=== PATIENT | male | born 1975 | race Caucasian/White ===

== ENCOUNTER 2016-06-07 21:50 | Inpatient (IN) | payer BC ==
[~2016-06-07] VITALS: Ht 165.1 cm; Wt 92.9 kg
[~2016-06-07 21:50] MED LIST: HYDR-762 PO; IBUP800T25 PO; NIAC500T81 PO; PRAV40TA76 PO
[2016-06-07] MEDS ORDERED: FAMOTIDINE 20 MG INJ IV STA (22:00)
[2016-06-07] MEDS ORDERED: ONDANSETRON 4 MG INJ IV STA (22:00)
[2016-06-07] MEDS ORDERED: SOD CHLORIDE 0.9% 1,000 ML IV STA ×2 (22:00→23:23)
[2016-06-07] MEDS ORDERED: KETOROLAC 30 MG INJ IV STA (22:00)
[2016-06-07] MEDS ORDERED: morphine 4 MG/ML VIAL IV STA ×2 (22:39→23:23)
--- NOTE | 2016-06-07 22:49 | RADRPT ---
PROCEDURE: US Abdomen. CLINICAL INDICATION: Abdominal pain. Pancreatitis. TECHNIQUE: Limited right upper quadrant Multiple real-time images were acquired utilizing a high r esolution transducer. COMPARISON: None FINDINGS: The liver demonstrates normal echogenicity. The liver is normal in size and no focal solid lesions are seen. The portal vein is patent with normal direction of flow. No intrahepatic biliary dilatat ion is seen. The liver measures 17.32 cm in length. No gallstones are identified within the gallbladder. There is no pericholecystic fluid or gallbladd er wall thickening. The common bile duct measures 3 mm mm in maximal dimension. The visualized pancreas is grossly unremarkable with some indistinct margins. The body and tail wer e obscured by bowel gas. No free fluid is identified. The right kidney is normal in size, and demonstrates normal echogenicity and cortical thickness. T he right kidney measures 11.7 cm. . There is no evidence of hydronephrosis or nephrolithiasis. IMPRESSION: Limited visualization of the pancreas. No gross peripancreatic fluid or mass. Otherwise unremarkab le right upper quadrant abdominal ultrasound. RPTAT:AAJJ Physician Laura Date Time Electronically viewed and signed by Physician Laura on 06/07/2016 22:48 REBECCA/
[2016-06-07 23:08] LABS: BASOPHILS % 0.2 % (0.0-2.0); EOSINOPHILS # 0.1 10^3/ul (0.0-0.5); EOSINOPHILS % 0.8 % (0.0-7.0); LYMPHOCYTES # 1.1 10^3/ul (0.8-2.9); LYMPHOCYTES % 13.4 % (15.0-51.0); MEAN PLATELET VOLUME 8.4 fl (7.4-10.4); MONOCYTE # 0.6 10^3/ul (0.3-0.9); MONOCYTES % 7.4 % (0.0-11.0); NEUTROPHIL # 6.2 10^3/ul (1.6-7.5); NEUTROPHILS % 78.2 % (39.0-77.0); PLATELET COUNT 260 10^3/UL (140-440); RED CELL DISTRIBUTION WIDTH 13.3 % (11.5-14.5); UNCORRECTED WBC 7.9 10^3/ul (4.8-10.8); WHITE BLOOD COUNT 7.9 10^3/ul (4.8-10.8)
[2016-06-07 23:12] LABS: ADD UMIC YES; URINE BILIRUBIN (Dip) NEGATIVE (NEGATIVE); URINE BLOOD (Dip) TRACE (NEGATIVE); URINE COLOR LT. YELLOW (YELLOW); URINE GLUCOSE (Dip) NEGATIVE (NEGATIVE); URINE KETONES (Dip) NEGATIVE (NEGATIVE); URINE LEUKOCYTE ESTERASE (Dip) NEGATIVE (NEGATIVE); URINE NITRITE (Dip) NEGATIVE (NEGATIVE); URINE TOTAL PROTEIN (Dip) 1+ (NEGATIVE); URINE UROBILINOGEN (Dip) 0.2 E.U./dL (0.1-1.0)
[2016-06-07 23:35] LABS: CONDITION 1; HEMATOCRIT 42.6 % (42.0-52.0); HEMOGLOBIN 15.2 g/dl (14.0-18.0); LH ANALYZER COMMENTS 1
[2016-06-07 23:36] LABS: ALBUMIN 5.1 g/dl (3.3-4.9); MEAN CORPUSCULAR HEMOGLOBIN 30.5 pg (29.0-33.0); MEAN CORPUSCULAR HGB CONC 35.8 g/dl (32.0-37.0); MEAN CORPUSCULAR VOLUME 85.2 fl (82.0-101.0)
[2016-06-07 23:37] LABS: POTASSIUM 4.8 mmol/L (3.5-5.1)
[2016-06-07 23:39] LABS: ALBUMIN/GLOBULIN RATIO 1.04; BILIRUBIN,INDIRECT 0.6 mg/dl (0-1.1); BILIRUBIN,TOTAL 0.6 mg/dl (0.2-1.3); CREATININE 1.02 mg/dl (0.61-1.24)
[2016-06-07 23:40] LABS: CALCIUM 9.8 mg/dl (8.4-10.2)
[2016-06-08 00:04] LABS: SQUAMOUS EPITHELIAL CELL,UR RARE; URINE RBCS 0-2 /HPF (0)
[2016-06-08 00:05] LABS: MUCUS,URINE FEW
[2016-06-08] MEDS ORDERED: SOD CHLORIDE 0.9% 1,000 ML IV SCH (00:15)
--- NOTE | 2016-06-08 00:18 | ERA ---
ER Documentation Chief Complaint Date/Time DATE: 06/08/16 TIME: 00:16 Chief Complaint epigastric pain HPI This is a 40-year-old male presents to the emergency room for evaluation of abdominal pain. Patient states that his abdominal pain for the past 24 hours. He localizes abdominal pain to the epigastric region and does state he has a history of pancreatitis. He states his pain feels similar to previous pancreatitis. The patient denies any alcohol consumption, or gallstones. The patient came to the ER for evaluation. Patient has no relieving factors for his pain and aggravating factors are movement of his abdomen. ROS All systems reviewed and are negative except as per history of present illness. Medications Home Meds Active Scripts Hydrocodone Bit-Acetaminophen* ([place]*) 10-325 Mg Tablet, 1 TAB PO Q6 Y for PAIN , #7 TAB Prov:SYLVIE JOSUE 11/03/14 Ibuprofen* (Motrin*) 800 Mg Tab, 800 MG PO Q6, #30 TAB Prov:SYLVIE JOSUE 11/03/14 Reported Medications Niacin* (Niacin*) 500 Mg Tablet, 500 MG PO DAILY, TAB 11/03/14 Pravastatin Sodium* (Pravastatin Sodium*) 40 Mg Tablet, 40 MG PO HS, TAB 11/03/14 Allergies Allergies: Coded Allergies: No Known Allergy (Unverified , 11/03/14) PMhx/Soc History of Surgery: Yes (rt elbow sx) Anesthesia Reaction: No Hx Neurological Disorder: No Hx Respiratory Disorders: No Hx Cardiac Disorders: No Hx Psychiatric Problems: No Hx Miscellaneous Medical Probl: Yes (high triglycerides, pancreatitis) Hx Alcohol Use: No Hx Substance Use: No Hx Tobacco Use: No Smoking Status: Never smoker Physical Exam Vitals Vital Signs Date Time Temp Pulse Resp B/P Pulse Ox O2 Delivery O2 Flow Rate FiO2 06/07/16 22:20 97.7 87 22 130/71 95 Physical Exam INITIAL VITAL SIGNS: Reviewed by me GENERAL: The patient is well developed and appropriate for usual state of health in no apparent distress HEENT: Pupils equal, round, and reactive to light. EOMI. There is no scleral icterus. NECK: C-spine is soft and supple, there is no meningismus. There is no cervical lymphadenopathy. LUNGS: Clear to auscultation bilaterally. There are no rales, wheezes or rhonchi. HEART: Regular rate and rhythm, no murmurs, clicks, rubs or gallops. ABDOMEN: Epigastric tenderness to palpation,. There are bowel sounds in all four quadrants. No rebound or guarding. EXTREMITIES: There is no peripheral cyanosis or edema. No focal swelling or erythema. NEUROLOGICAL: The patient moves all four extremities with 5/5 strength. Cranial nerves II - XII are intact. Normal gait. Alert and oriented SKIN: There is no apparent rash or petechiae. HEME/LYMPHATIC: There is no evidence of excessive bruising or lymphedema. PSYCHIATRIC: The patient does not appear anxious or depressed. Result Diagram: 06/07/16220406/07/162204 Results 24 hrs Laboratory Tests Test 06/07/16 22:05 Alanine Aminotransferase (ALT/SGPT) 49IU/L Albumin 5.1g/dl Albumin/Globulin Ratio 1.04 Alkaline Phosphatase 70IU/L Anion Gap 22 Aspartate Amino Transf (AST/SGOT) 76IU/L Basophils # 0.010^3/ul Basophils % 0.2% Blood Morphology Comment Blood Urea Nitrogen 12mg/dl Calcium Level 9.8mg/dl Carbon Dioxide Level 26mmol/L Chloride Level 100mmol/L Creatinine 1.02mg/dl Direct Bilirubin 0.00mg/dl Eosinophils # 0.110^3/ul Eosinophils % 0.8% Globulin 4.90g/dl Glucose Level 97mg/dl Hematocrit 42.6% Hemoglobin 15.2g/dl Indirect Bilirubin 0.6mg/dl Lipase U/L Lymphocytes # 1.110^3/ul Lymphocytes % 13.4% Mean Corpuscular Hemoglobin 30.5pg Mean Corpuscular Hemoglobin Concent 35.8g/dl Mean Corpuscular Volume 85.2fl Mean Platelet Volume 8.4fl Monocytes # 0.610^3/ul Monocytes % 7.4% Neutrophils # 6.210^3/ul Neutrophils % 78.2% Nucleated Red Blood Cells # 0.010^3/ul Nucleated Red Blood Cells % 0.0/100WBC Platelet Count 16840^3/UL Potassium Level 4.8mmol/L Red Blood Count 5.0010^6/ul Red Cell Distribution Width 13.3% Sodium Level 143mmol/L Total Bilirubin 0.6mg/dl Total Protein 10.0g/dl Urine Bilirubin NEGATIVE Urine Clarity CLEAR Urine Color LT. YELLOW Urine Glucose NEGATIVE% Urine Hemoglobin TRACE Urine Ketones NEGATIVE Urine Leukocyte Esterase NEGATIVE Urine Microscopic RBC 0-2/HPF Urine Microscopic WBC 0-2/HPF Urine Mucus FEW Urine Nitrite NEGATIVE Urine Specific [place] 1.025 Urine Squamous Epithelial Cells RARE Urine Total Protein 1+ Urine Urobilinogen 0.2 E.U./dL Urine pH 6.0 White Blood Count 7.910^3/ul Current Medications Medications (Trade) Dose Ordered Sig/Juany Route PRN Reason Start Time Stop Time Status Last Admin Dose Admin Sodium Chloride (NS) 1,000 ml @ 1,000 mls/hr Q1H STAT IV 06/07/16 22:00 06/07/16 22:59 DC 06/07/16 22:21 Ondansetron HCl (Zofran Inj) 4 mg ONCE STAT IV 06/07/16 22:00 06/07/16 22:02 DC 06/07/16 22:20 Famotidine (Pepcid Iv) 20 mg ONCE STAT IV 06/07/16 22:00 06/07/16 22:02 DC 06/07/16 22:21 Ketorolac Tromethamine (Toradol) 30 mg ONCE STAT IV 06/07/16 22:00 06/07/16 22:02 DC 06/07/16 22:20 Morphine Sulfate 4 mg 4 mg ONCE STAT IV 06/07/16 22:39 06/07/16 22:40 DC 06/07/16 22:50 Sodium Chloride (NS) 1,000 ml @ 1,000 mls/hr Q1H STAT IV 06/07/16 23:23 06/08/16 00:22 06/07/16 23:32 Morphine Sulfate (morphine) 4 mg ONCE STAT IV 06/07/16 23:23 06/07/16 23:24 DC 06/07/16 23:33 Procedures/MDM Ultrasound gallbladder: Limited visualization of the pancreas. No gross peripancreatic fluid or mass. Otherwise unremarkable right upper quadrant abdominal ultrasound. This 40-year-old male presents to the ER for evaluation of abdominal pain. This patient does have a previous history of pancreatitis. Lab work was obtained including a lipase. I was called by the laboratory and told that the patient's lipase is greater than 4000. An ultrasound was obtained to rule out gallstones as the cause of his pancreatitis. The patient has no gallstones, no common bile duct dilation. The patient does not use alcohol, and I looked up his previous medical records and it seems like this patient does have a history of hypertriglyceridemia. I feel that this is the cause of his pancreatitis. The patient's pain is controlled with morphine in the emergency room and he will be placed on the medical floor under the care of Dr. Lee Departure Diagnosis: Primary Impression: Acute pancreatitis Additional Impression: Hypertriglyceridemia Condition: Stable BENNY KIRKLAND DO Jun 08, 2016 00:18
[2016-06-08] MEDS ORDERED: ACETAMINOPHEN 325 MG TAB PO PRN (00:30)
[2016-06-08] MEDS ORDERED: ONDANSETRON 4 MG INJ IV PRN ×2 (00:30→02:30)
[2016-06-08 01:43] VITALS: BP 116/67; RESP 16
[2016-06-08 02:00] VITALS: Ht 165.1 cm; Wt 92.9 kg
[2016-06-08] MEDS: D5W-0.45 NACL + KCL 20 MEQ 1,000 ML IV SCH ×3 (03:15→18:52)
[2016-06-08] MEDS: morphine 4 MG/ML VIAL IV PRN ×2 (03:30→17:58)
[2016-06-08] MEDS: morphine 10 MG INJ IV PRN ×2 (07:25→21:45)
[2016-06-08 07:33] LABS: CHOL/HDL RATIO 13.3 RATIO; CHOLESTEROL 266 mg/dl (100-200); HDL CHOLESTEROL 20 mg/dl (28-63)
[2016-06-08 08:36] VITALS: BP 105/59; RESP 18
[2016-06-08 09:33] LABS: ALBUMIN 3.8 g/dl (3.3-4.9); CHLORIDE 104 mmol/L (97-110)
[2016-06-08 09:34] LABS: POTASSIUM 5.4 mmol/L (3.5-5.1); SODIUM 139 mmol/L (135-144)
[2016-06-08 09:35] LABS: AMYLASE 405 U/L (11-123)
[2016-06-08 09:36] LABS: ALANINE AMINOTRANSFERASE 57 IU/L (13-69); ALBUMIN/GLOBULIN RATIO 1.05; ALKALINE PHOSPHATASE 48 IU/L (42-121); ANION GAP 16 (8-16); ASPARTATE AMINO TRANSFERASE 36 IU/L (15-46); BILIRUBIN,INDIRECT 0.6 mg/dl (0-1.1); BILIRUBIN,TOTAL 0.6 mg/dl (0.2-1.3); BLOOD UREA NITROGEN 10 mg/dl (7-20); CARBON DIOXIDE 24 mmol/L (21-31); CREATININE 1.04 mg/dl (0.61-1.24); GLUCOSE 110 mg/dl (70-220); TOTAL PROTEIN 7.4 g/dl (6.1-8.1)
[2016-06-08 09:37] LABS: CALCIUM 8.3 mg/dl (8.4-10.2); MAGNESIUM 1.9 mg/dl (1.7-2.5)
[2016-06-08 09:41] LABS: TRIGLYCERIDES > 1575 mg/dl (0-149)
[2016-06-08 09:43] LABS: BASOPHILS % 0.1 % (0.0-2.0); EOSINOPHILS % 0.5 % (0.0-7.0); HEMATOCRIT 42.5 % (42.0-52.0); LYMPHOCYTES # 0.7 10^3/ul (0.8-2.9); MEAN CORPUSCULAR HEMOGLOBIN 30.6 pg (29.0-33.0); MEAN CORPUSCULAR HGB CONC 35.6 g/dl (32.0-37.0); MEAN CORPUSCULAR VOLUME 85.8 fl (82.0-101.0); MEAN PLATELET VOLUME 9.2 fl (7.4-10.4); MONOCYTE # 0.4 10^3/ul (0.3-0.9); MONOCYTES % 4.7 % (0.0-11.0); NEUTROPHIL # 8.3 10^3/ul (1.6-7.5); NEUTROPHILS % 87.7 % (39.0-77.0); RED BLOOD COUNT 4.96 10^6/ul (4.70-6.10); RED CELL DISTRIBUTION WIDTH 13.5 % (11.5-14.5); UNCORRECTED WBC 9.4 10^3/ul (4.8-10.8)
[2016-06-08 09:49] LABS: CONDITION 1
[2016-06-08 09:50] LABS: HEMOGLOBIN 15.1 g/dl (14.0-18.0); PLATELET COUNT 220 10^3/UL (140-440); WHITE BLOOD COUNT 9.7 10^3/ul (4.8-10.8)
--- NOTE | 2016-06-08 11:43 | HP ---
Date/Time of Note Date/Time of Note DATE: 06/08/16 TIME: 11:33 Assessment/Plan VTE Prophylaxis VTE Prophylaxis Intervention: SCD's Lines/Catheters IV Catheter Type (from Nrsg): Peripheral IV Assessment/Plan Problems: (1) Acute pancreatitis Status: Acute Comment: Hypertriglyceridemic pancreatitis. Will place on bowel rest w/ IVF and treat pain w/ morphine sulfate. Pt. denies nausea but ondansetron is available prn. Monitor LFT, amylase/lipase Calcium, CO2, renal function. Qualifiers: Pancreatitis type: other Acute pancreatitis complication: no infection or necrosis Qualified Code: K85.80 - Other acute pancreatitis without infection or necrosis (2) Hypertriglyceridemia Status: Chronic Comment: Triglycerides above upper limit of detection. Pt. reports adherence w / gemfibrozil. Once on po meds would add Lovaza or Vascepa 2 g bid and pt. advised to take an extra 3 g EPA/DHA in meuxj-6-uxnof acid/d. Pt. also advised to adhere w/ low-carb diet. HPI/ROS Admit Date/Time Admit Date/Time Jun 08, 2016 at 00:16 Hx of Present Illness 40 y/o H M w/ personal and family h/o hypertriglyceridemia and personal h/o pancreatitis in H until 2 days ago when he developed mild upper abd. pain and some GI discomfort. Denies N/V. Was able to go to work. When he got home he took a nap. Upon wakening yesterday evening abd. pain was severe. Again no N/ V but did have some belching. Drove self to ER. On way there had drenching cold sweats and had to pin puller. On arrival to ER VS were NL but found on labs to have lipse > 3000. Pt. reports total adherence w/ anti-lipid meds and exercises frequently. However, admits to poor diet. ROS Constitutional: improved, no complaints Eyes: no complaints ENT: no complaints Respiratory: no complaints Cardiovascular: no complaints Gastrointestinal: decreased appetite, pain (periumbilical radiating to R flank) , No nausea, No vomiting Genitourinary: no complaints Musculoskeletal: no complaints Neurologic: no complaints Psychological: anxiety PMH/Family/Social Past Medical History Medical History: high cholesterol, pancreatitis Past Surgical History Past Surgical Hx: appendectomy, other (dislocated R elbow x 2) Family History Significant Family History: heart disease, other (hyperlipidemia) Social History Works at [employer]. Runs half-marathons Alcohol Use: sober Smoking Status: Never smoker Drug Use: none Exam/Review of Systems Vital Signs Vitals Vital Signs Date Time Temp Pulse Resp B/P Pulse Ox O2 Delivery O2 Flow Rate FiO2 06/08/16 08:36 98.9 65 18 105/59 95 06/08/16 01:30 Room Air Intake and Output 06/07/16 06/07/16 06/08/16 15:00 23:00 07:00 Intake Total 375 ml Balance 375 ml Exam Constitutional: alert, oriented, other (obese) Psych: nl mood/affect, no complaints Eyes: EOMI, PERRL, nl conjunctiva, nl lids, nl sclera ENMT: mucosa pink and moist, nl external ears & nose Neck: non-tender, supple, No bruits, No masses, No thyromegaly Respiratory: clear to auscultation, normal air movement Cardiovascular: nl pulses, regular rate and rhythm, No edema, No murmurs/extra sounds, No rub Gastrointestinal: bowel sounds, nl liver, spleen, soft, tender (periumbilical and RLQ, (+) tender to percussion as well), No non-tender Musculoskeletal: nl extremities to inspection Extremities: normal pulses, No clubbing, No cyanosis, No edema Neurological: PARISH WORKER II-XII intact, nl mental status, nl speech, nl strength Labs Result Diagram: 06/08/16 0830 06/08/16 0830 Medications Medications Current Medications Ondansetron HCl 4 mg 4 mg Q4H PRN IV NAUSEA AND/OR VOMITING; Start 06/08/16 at 02:30 Potassium Chloride/Dextrose/ Sod Cl (D5-1/2ns + KCl 20 Meq) 1,000 ml @ 125 mls/ hr Q8H IV Last administered on 06/08/16 03:15; Admin Dose 125 MLS/HR; Start at 02:30 Morphine Sulfate (morphine) 4 mg Q4H PRN IV PAIN LEVEL 1-6 Last administered on 06/08/16 03:30; Admin Dose 4 MG; Start 06/08/16 at 02:30 Morphine Sulfate (morphine) 6 mg Q4H PRN IV PAIN LEVEL 7-10 Last administered on 06/08/16t 07:25; Admin Dose 6 MG; Start 06/08/16 at 02:30 MENG BROOKS MD Jun 08, 2016 11:43
[2016-06-08 20:45] VITALS: BP 115/57; PULSE 96; RESP 18
[2016-06-09] MEDS: D5W-0.45 NACL + KCL 20 MEQ 1,000 ML IV SCH ×5 (03:27→21:46)
[2016-06-09 06:37] LABS: ALBUMIN 3.4 g/dl (3.3-4.9)
[2016-06-09 06:40] LABS: ALBUMIN/GLOBULIN RATIO 1.03; BILIRUBIN,INDIRECT 0.6 mg/dl (0-1.1); BILIRUBIN,TOTAL 0.6 mg/dl (0.2-1.3); CALCIUM 7.9 mg/dl (8.4-10.2); CREATININE 1.02 mg/dl (0.61-1.24); TOTAL PROTEIN 6.7 g/dl (6.1-8.1)
[2016-06-09 07:31] VITALS: BP 125/65; RESP 18
[2016-06-09 08:34] LABS: EOSINOPHILS # 0.1 10^3/ul (0.0-0.5); EOSINOPHILS % 1.5 % (0.0-7.0); HEMATOCRIT 39.7 % (42.0-52.0); LYMPHOCYTES # 0.5 10^3/ul (0.8-2.9); MEAN CORPUSCULAR HEMOGLOBIN 30.3 pg (29.0-33.0); MEAN CORPUSCULAR HGB CONC 34.6 g/dl (32.0-37.0); MEAN CORPUSCULAR VOLUME 87.5 fl (82.0-101.0); MEAN PLATELET VOLUME 9.2 fl (7.4-10.4); MONOCYTE # 0.1 10^3/ul (0.3-0.9); MONOCYTES % 1.1 % (0.0-11.0); NEUTROPHIL # 7.9 10^3/ul (1.6-7.5); NEUTROPHILS % 91.4 % (39.0-77.0); RED BLOOD COUNT 4.54 10^6/ul (4.70-6.10); RED CELL DISTRIBUTION WIDTH 13.8 % (11.5-14.5); UNCORRECTED WBC 8.6 10^3/ul (4.8-10.8)
[2016-06-09 08:36] LABS: CONDITION 1; LH ANALYZER COMMENTS 1
[2016-06-09 08:37] LABS: HEMOGLOBIN 13.8 g/dl (14.0-18.0); PLATELET COUNT 190 10^3/UL (140-440); WHITE BLOOD COUNT 9.2 10^3/ul (4.8-10.8)
[2016-06-09] MEDS: ACETAMINOPHEN 325 MG TAB PO PRN ×2 (09:48→17:53)
--- NOTE | 2016-06-09 10:23 | PN ---
Date/Time of Note Date/Time of Note DATE: 06/09/16 TIME: 10:19 Assessment/Plan VTE Prophylaxis VTE Prophylaxis Intervention: SCD's Lines/Catheters IV Catheter Type (from Nrs): Peripheral IV Assessment/Plan Problems: (1) Acute pancreatitis Status: Acute Comment: Improving dramatically. Advance to sugar-free clears. If tolerating and desires more food, may advance to low-carb diet tonight. If tolerates that , likely d/c home tomorrow. Qualifiers: Pancreatitis type: other Acute pancreatitis complication: no infection or necrosis Qualified Code: K85.80 - Other acute pancreatitis without infection or necrosis (2) Hypertriglyceridemia Status: Chronic Comment: Resume gemfibrozil 600 mg bid and add fish oil 2 g bid. (3) Headache Status: Acute Comment: Tylenol 650 mg prn Subjective 24 Hr Interval Summary Constitutional: improved, no complaints Respiratory: no complaints Cardiovascular: no complaints Gastrointestinal: pain (reduction in level of pain to 3/10. ), No decreased appetite, No nausea, No vomiting Genitourinary: no complaints Musculoskeletal: no complaints Neurologic: headache, no complaints Exam/Review of Systems Vital Signs Vitals VS - Last 72 Hours, by Label Date Time Temp Pulse Resp B/P Pulse Ox O2 Delivery O2 Flow Rate FiO2 06/09/16 07:31 98.6 90 18 125/65 95 06/08/16 20:45 98.6 96 18 115/57 98 Room Air 06/08/16 08:36 98.9 65 18 105/59 95 06/08/16 01:43 98.4 66 16 116/67 96 06/08/16 01:30 81 13 103/58 96 Room Air 06/08/16 01:29 74 14 103/58 94 Room Air 06/07/16 22:20 97.7 87 22 130/71 95 Vital Signs Date Time Temp Pulse Resp B/P Pulse Ox O2 Delivery O2 Flow Rate FiO2 06/09/16 07:31 98.6 90 18 125/65 95 06/08/16 20:45 Room Air Intake and Output 06/08/16 06/08/16 06/09/16 14:59 22:59 06:59 Intake Total 1000 ml 1000 ml Balance 1000 ml 1000 ml Exam Constitutional: alert, obese, oriented Psych: nl mood/affect, no complaints Respiratory: clear to auscultation, normal air movement Cardiovascular: nl pulses, regular rate and rhythm, No edema, No murmurs/extra sounds, No rub Gastrointestinal: bowel sounds, nl liver, spleen, soft, tender (periumbilical and RUQ but decreased in intensity vs. yesterday. No longer TTpercussion), No mass, No rebound or guarding Musculoskeletal: nl extremities to inspection Extremities: normal pulses, No clubbing, No cyanosis, No edema Neurological: BAG WORKER II-XII intact, nl mental status, nl speech, nl strength Results Result Diagram: 06/09/1644906/09/16449 Results 24 hrs Laboratory Tests Test 06/09/16 04:50 Alanine Aminotransferase (ALT/SGPT) 43 Albumin 3.4 Albumin/Globulin Ratio 1.03 Alkaline Phosphatase 48 Amylase Level 135 #H Anion Gap 14 Aspartate Amino Transf (AST/SGOT) 32 Basophils # 0.0 Basophils % 0.0 Blood Urea Nitrogen 9 Calcium Level 7.9 L Carbon Dioxide Level 27 Chloride Level 101 Creatinine 1.02 Direct Bilirubin 0.00 Eosinophils # 0.1 Eosinophils % 1.5 Globulin 3.30 H Glucose Level 93 Hematocrit 39.7 L Hemoglobin 13.8 L Indirect Bilirubin 0.6 Lipase 354 H Lymphocytes # 0.5 L Lymphocytes % 6.0 L Mean Corpuscular Hemoglobin 30.3 Mean Corpuscular Hemoglobin Concent 34.6 Mean Corpuscular Volume 87.5 Mean Platelet Volume 9.2 Monocytes # 0.1 L Monocytes % 1.1 Neutrophils # 7.9 H Neutrophils % 91.4 H Nucleated Red Blood Cells # 0.0 Nucleated Red Blood Cells % 0.0 Platelet Count 190 Potassium Level 4.0 Red Blood Count 4.54 L Red Cell Distribution Width 13.8 Sodium Level 138 Total Bilirubin 0.6 Total Protein 6.7 White Blood Count 9.2 Medications Medications Current Medications Ondansetron HCl 4 mg 4 mg Q4H PRN IV NAUSEA AND/OR VOMITING; Start 06/08/16 at 02:30 Potassium Chloride/Dextrose/ Sod Cl (D5-1/2ns + KCl 20 Meq) 1,000 ml @ 125 mls/ hr Q8H IV Last administered on 06/09/16t 03:27; Admin Dose 125 MLS/HR; Start at 02:30 Morphine Sulfate (morphine) 4 mg Q4H PRN IV PAIN LEVEL 1-6 Last administered on 06/08/16 17:58; Admin Dose 4 MG; Start 06/08/16 at 02:30 Morphine Sulfate (morphine) 6 mg Q4H PRN IV PAIN LEVEL 7-10 Last administered on 06/08/16 21:45; Admin Dose 6 MG; Start 06/08/16 at 02:30 Acetaminophen (Tylenol Tab) 650 mg Q4H PRN PO HEADACHE Last administered on 09:48; Admin Dose 650 MG; Start 06/09/16 at 09:33 MENG BROOKS MD Jun 09, 2016 10:23
[2016-06-09] MEDS: GEMFIBROZIL 600 MG TAB PO SCH (20:04)
[2016-06-09] MEDS: FISH OIL 1,000 MG CAP PO SCH (20:04)
[2016-06-09 20:15] VITALS: BP 136/78; RESP 20
[2016-06-10] MEDS: D5W-0.45 NACL + KCL 20 MEQ 1,000 ML IV SCH ×3 (02:30→10:30)
[2016-06-10 07:02] LABS: ALBUMIN 3.6 g/dl (3.3-4.9)
[2016-06-10 07:03] LABS: POTASSIUM 3.9 mmol/L (3.5-5.1)
[2016-06-10 07:05] LABS: ALBUMIN/GLOBULIN RATIO 0.94; BILIRUBIN,INDIRECT 0.5 mg/dl (0-1.1); BILIRUBIN,TOTAL 0.5 mg/dl (0.2-1.3); CREATININE 0.86 mg/dl (0.61-1.24); TOTAL PROTEIN 7.4 g/dl (6.1-8.1)
[2016-06-10 07:06] LABS: CALCIUM 8.4 mg/dl (8.4-10.2)
[2016-06-10 07:25] VITALS: BP 135/73; RESP 20
[2016-06-10 08:01] LABS: BASOPHIL # 0.1 10^3/ul (0.0-0.1); BASOPHILS % 0.9 % (0.0-2.0); EOSINOPHILS # 0.1 10^3/ul (0.0-0.5); HEMATOCRIT 40.9 % (42.0-52.0); LYMPHOCYTES # 0.8 10^3/ul (0.8-2.9); LYMPHOCYTES % 10.6 % (15.0-51.0); MEAN CORPUSCULAR HEMOGLOBIN 30.6 pg (29.0-33.0); MEAN CORPUSCULAR HGB CONC 35.1 g/dl (32.0-37.0); MEAN CORPUSCULAR VOLUME 87.1 fl (82.0-101.0); MEAN PLATELET VOLUME 9.4 fl (7.4-10.4); MONOCYTE # 0.5 10^3/ul (0.3-0.9); MONOCYTES % 7.3 % (0.0-11.0); NEUTROPHIL # 5.9 10^3/ul (1.6-7.5); NEUTROPHILS % 79.2 % (39.0-77.0); PLATELET COUNT 147 10^3/UL (140-440); RED CELL DISTRIBUTION WIDTH 13.6 % (11.5-14.5); UNCORRECTED WBC 7.4 10^3/ul (4.8-10.8)
[2016-06-10 08:03] LABS: CONDITION 1; HEMOGLOBIN 14.4 g/dl (14.0-18.0); WHITE BLOOD COUNT 7.3 10^3/ul (4.8-10.8)
[2016-06-10] MEDS: FISH OIL 1,000 MG CAP PO SCH (09:00)
[2016-06-10] MEDS: GEMFIBROZIL 600 MG TAB PO SCH (09:01)
--- NOTE | 2016-06-10 13:49 | PDOCDIS ---
Discharge Instructions DIAGNOSIS Discharge Diagnosis: Acute pancreatitis due to hypertriglyceridemia CONDITION Patient Condition: Fair HOME CARE INSTRUCTIONS: Diet Instructions: Low-carbSpecial Diet: Low-carb ACTIVITY: Activity Restrictions: No Restrictions Bathing Restrictions: Shower FOLLOW UP/APPOINTMENTS Appointments f/u w/ Dr. Palmer in 2 weeks MENG BROOKS MD Jun 10, 2016 13:49
[2016-06-10] MEDS ORDERED: OMEG1CAP2 PO (13:51)
[2016-06-10] MEDS ORDERED: GEMF600T60 PO (13:51)
--- NOTE | 2016-06-10 13:56 | DS ---
Date/Time of Note Date/Time of Note DATE: 06/10/16 TIME: 13:52 Discharge Summary Admission/Discharge Info Admit Date/Time Jun 08, 2016 at 00:16 Discharge Date/Time 06/10/2016 @ 1400 Final Diagnosis Acute pancreatitis due to hypertriglyceridemia. Patient Condition: Fair Consults none Procedures Gall bladder ultrasound: unremarkable Hx of Present Illness 40 y/o H M w/ personal and family h/o hypertriglyceridemia and personal h/o pancreatitis in H until 2 days ago when he developed mild upper abd. pain and some GI discomfort. Denies N/V. Was able to go to work. When he got home he took a nap. Upon wakening yesterday evening abd. pain was severe. Again no N/ V but did have some belching. Drove self to ER. On way there had drenching cold sweats and had to stock puller. On arrival to ER VS were NL but found on labs to have lipse > 3000. Pt. reports total adherence w/ anti-lipid meds and exercises frequently. However, admits to poor diet. Hospital Course Patient made NPO and placed on IV fluids and ordered for morphine IV and ondansetron. Did not need ondansetron. Pain improved and lipase normalized over next 2 days. Triglycerides found to be greater than the upper limit of detection for [facility]. Resumed clear liquid diet last night and started lovaza 2 g bid and resumed gemfibrozil. This am, advanced to carb-controlled diet. Pt. tolerated and is now pain-free. Ready for d/c home. Advise low-carb diet plus these two meds in the future. Home Meds Active Scripts [place]-3 Acid Ethyl Esters (Lovaza) 1 Gm Capsule, 2 GM PO BID for 30 Days, #60 CAP 5 Refills Prov:MENG BROOKS MD 06/10/16 Gemfibrozil* (Gemfibrozil*) 600 Mg Tablet, 600 MG PO BID for 30 Days, #60 TAB 5 Refills Prov:MENG BROOKS MD 06/10/16 Hydrocodone Bit-Acetaminophen* ([place]*) 10-325 Mg Tablet, 1 TAB PO Q6 Y for PAIN , #7 TAB Prov:SYLVIE JOSUE 11/03/14 Ibuprofen* (Motrin*) 800 Mg Tab, 800 MG PO Q6, #30 TAB Prov:BEAUSYLVIE WANG 11/03/14 Reported Medications Niacin* (Niacin*) 500 Mg Tablet, 500 MG PO DAILY, TAB 11/03/14 Pravastatin Sodium* (Pravastatin Sodium*) 40 Mg Tablet, 40 MG PO HS, TAB 11/03/14 Follow-up Plan f/u w/ Dr. Palmer in 2 weeks Pending Labs Laboratory Tests Test 06/10/16 05:35 Alanine Aminotransferase (ALT/SGPT) 42IU/L (13-69) Albumin 3.6g/dl (3.3-4.9) Albumin/Globulin Ratio 0.94 Alkaline Phosphatase 72IU/L (42-121) Amylase Level 75U/L (11-123) Anion Gap 16 (8-16) Aspartate Amino Transf (AST/SGOT) 32IU/L (15-46) Basophils # 0.110^3/ul (0.0-0.1) Basophils % 0.9% (0.0-2.0) Blood Urea Nitrogen 6mg/dl (7-20) Calcium Level 8.4mg/dl (8.4-10.2) Carbon Dioxide Level 25mmol/L (21-31) Chloride Level 104mmol/L (97-110) Creatinine 0.86mg/dl (0.61-1.24) Direct Bilirubin 0.00mg/dl (0.00-0.20) Eosinophils # 0.110^3/ul (0.0-0.5) Eosinophils % 2.0% (0.0-7.0) Globulin 3.80g/dl (1.3-3.2) Glucose Level 103mg/dl (70-220) Hematocrit 40.9% (42.0-52.0) Hemoglobin 14.4g/dl (14.0-18.0) Indirect Bilirubin 0.5mg/dl (0-1.1) Lipase 143U/L (23-300) Lymphocytes # 0.810^3/ul (0.8-2.9) Lymphocytes % 10.6% (15.0-51.0) Mean Corpuscular Hemoglobin 30.6pg (29.0-33.0) Mean Corpuscular Hemoglobin Concent 35.1g/dl (32.0-37.0) Mean Corpuscular Volume 87.1fl (82.0-101.0) Mean Platelet Volume 9.4fl (7.4-10.4) Monocytes # 0.510^3/ul (0.3-0.9) Monocytes % 7.3% (0.0-11.0) Neutrophils # 5.910^3/ul (1.6-7.5) Neutrophils % 79.2% (39.0-77.0) Nucleated Red Blood Cells # 0.010^3/ul (0.0-0.0) Nucleated Red Blood Cells % 0.0/100WBC (0.0-0.0) Platelet Count 71324^3/UL (140-440) Potassium Level 3.9mmol/L (3.5-5.1) Red Blood Count 4.7010^6/ul (4.70-6.10) Red Cell Distribution Width 13.6% (11.5-14.5) Sodium Level 141mmol/L (135-144) Total Bilirubin 0.5mg/dl (0.2-1.3) Total Protein 7.4g/dl (6.1-8.1) White Blood Count 7.310^3/ul (4.8-10.8) MENG BROOKS MD Jun 10, 2016 13:56
== END 2016-06-10 14:50 | disposition home or self-care (01) | DRG 440 ==
LOC: E/R 21:50 → MS2 06-08 00:16
PROVIDERS: ADMIT Internal Medicine; ATTEND Internal Medicine
DX: K85.90 Acute pancreatitis without necrosis or infection, unspecified (principal); E78.1 Pure hyperglyceridemia; R51 Headache
CPT/HCPCS: 36415; 76705; 80053; 80061; 81001; 81003; 82150; 83690; 83735; 84100; 85025; 96374; 96375; 96376; J1885; J2270; J2405; J3480; J7030

== ENCOUNTER 2017-04-06 21:16 | Inpatient (IN) | payer BC ==
[~2017-04-06] VITALS: Ht 165.1 cm; Wt 92.3 kg
[~2017-04-06 21:16] MED LIST changes: +GEMF600T60 PO; -HYDR-762 PO; -IBUP800T25 PO; +OMEG1CAP2 PO
[2017-04-06] MEDS ORDERED: morphine 4 MG/ML VIAL IV STA (21:27)
[2017-04-06] MEDS ORDERED: ONDANSETRON 4 MG INJ IV STA (21:27)
[2017-04-06] MEDS ORDERED: LACTATED RINGER'S 1,000 ML IV ONE (21:30)
[2017-04-06 22:01] LABS: BASOPHILS % 0.2 % (0.0-2.0); EOSINOPHILS # 0.1 10^3/ul (0.0-0.5); EOSINOPHILS % 1.3 % (0.0-7.0); HEMATOCRIT 41.3 % (42.0-52.0); HEMOGLOBIN 16.2 g/dl (14.0-18.0); LYMPHOCYTES % 11.4 % (15.0-51.0); MEAN CORPUSCULAR HEMOGLOBIN 32.5 pg (29.0-33.0); MEAN CORPUSCULAR VOLUME 82.8 fl (82.0-101.0); MEAN PLATELET VOLUME 10.2 fl (7.4-10.4); MONOCYTE # 0.6 10^3/ul (0.3-0.9); MONOCYTES % 6.7 % (0.0-11.0); NEUTROPHIL # 6.9 10^3/ul (1.6-7.5); NEUTROPHILS % 80.1 % (39.0-77.0); PLATELET COUNT 252 10^3/UL (140-415); POSITIVE DIFF @See below; RED BLOOD COUNT 4.99 10^6/ul (4.70-6.10); RED CELL DISTRIBUTION WIDTH 12.2 % (11.5-14.5); WHITE BLOOD COUNT 8.7 10^3/ul (4.8-10.8)
[2017-04-06 22:06] LABS: MEAN CORPUSCULAR HGB CONC 39.2 g/dl (32.0-37.0)
[2017-04-06 22:27] LABS: ALBUMIN/GLOBULIN RATIO 0.93; BILIRUBIN,INDIRECT 0.7 mg/dl (0-1.1); BILIRUBIN,TOTAL 0.7 mg/dl (0.2-1.3); CALCIUM 8.8 mg/dl (8.4-10.2); CREATININE 0.91 mg/dl (0.61-1.24); POTASSIUM 4.4 mmol/L (3.5-5.1); TOTAL PROTEIN 8.3 g/dl (6.1-8.1)
[2017-04-06] MEDS ORDERED: morphine 10 MG INJ IV ONE (23:30)
[2017-04-07] MEDS ORDERED: LIDOCAINE/MYLANTA 40 ML BTL PO ONE
[2017-04-07] MEDS ORDERED: LIDOCAINE/MYLANTA 40 ML BTL ONE (00:29)
[2017-04-07] MEDS ORDERED: morphine 10 MG INJ IV ONE (01:00)
--- NOTE | 2017-04-07 01:01 | ERD ---
ER Documentation Chief Complaint Chief Complaint epigastric pain / x 2 days (history of pancreatitis) HPI 41-year-old male presents with severe epigastric pain in his left upper abdomen as well as his epigastrium and sometimes in his right abdomen. It has been admitted before him and told that he had pancreatitis although it was not related to alcohol and he has no gallbladder disease. Pain is severe. Worse in his emergency room. Mentions to me earlier in the day when I was working with him now returns because the pain is severe. He has some nausea with pain without vomiting. Tried taking Zantac earlier with no relief. ROS All systems reviewed and are negative except as per history of present illness. Medications Home Meds Active Scripts [place]-3 Acid Ethyl Esters (Lovaza) 1 Gm Capsule, 2 GM PO BID for 30 Days, #60 CAP 5 Refills Prov:MENG BROOKS MD 06/10/16 Gemfibrozil* (Gemfibrozil*) 600 Mg Tablet, 600 MG PO BID for 30 Days, #60 TAB 5 Refills Prov:MENG BROOKS MD 06/10/16 Reported Medications Niacin* (Niacin*) 500 Mg Tablet, 500 MG PO DAILY, TAB 11/03/14 Pravastatin Sodium* (Pravastatin Sodium*) 40 Mg Tablet, 40 MG PO HS, TAB 11/03/14 Allergies Allergies: Coded Allergies: No Known Allergy (Unverified , 11/03/14) PMhx/Soc History of Surgery: Yes (APPENDECTOMY, ) Anesthesia Reaction: No Hx Neurological Disorder: No Hx Respiratory Disorders: No Hx Cardiac Disorders: No (HIGH CHOLESTEROL) Hx Psychiatric Problems: No Hx Miscellaneous Medical Probl: Yes (pancreatitis) Hx Alcohol Use: No Hx Substance Use: No Hx Tobacco Use: No Smoking Status: Never smoker Physical Exam Vitals Vital Signs Date Time Temp Pulse Resp B/P Pulse Ox O2 Delivery O2 Flow Rate FiO2 04/06/17 23:20 86 14 146/83 97 Nasal Cannula 2.0 04/06/17 21:20 98 18 152/98 95 Physical Exam Const: [] Moderate distress, appears very uncomfortable Head: Atraumatic Eyes: Normal Conjunctiva ENT: Normal External Ears, Nose and Mouth. Neck: Full range of motion..~ No meningismus. Resp: Clear to auscultation bilaterally Cardio: Regular rate and rhythm, no murmurs Abd: Soft, mild upper abdominal tenderness without guarding or rebound non distended. Normal bowel sounds Skin: No petechiae or rashes Back: No midline or flank tenderness Ext: No cyanosis, or edema Neur: Awake and alert Psych: Normal Mood and Affect Result Diagram: 04/06/17214404/06/172144 Results 24 hrs Laboratory Tests Test 04/06/17 21:45 White Blood Count 8.710^3/ul Red Blood Count 4.9910^6/ul Hemoglobin 16.2g/dl Hematocrit 41.3% Mean Corpuscular Volume 82.8fl Mean Corpuscular Hemoglobin 32.5pg Mean Corpuscular Hemoglobin Concent 39.2g/dl Red Cell Distribution Width 12.2% Platelet Count 38905^3/UL Mean Platelet Volume 10.2fl Neutrophils % 80.1% Lymphocytes % 11.4% Monocytes % 6.7% Eosinophils % 1.3% Basophils % 0.2% Nucleated Red Blood Cells % 0.0/100WBC Neutrophils # 6.910^3/ul Lymphocytes # 1.010^3/ul Monocytes # 0.610^3/ul Eosinophils # 0.110^3/ul Basophils # 0.010^3/ul Nucleated Red Blood Cells # 0.010^3/ul Sodium Level 139mmol/L Potassium Level 4.4mmol/L Chloride Level 106mmol/L Carbon Dioxide Level 20mmol/L Anion Gap 17 Blood Urea Nitrogen 11mg/dl Creatinine 0.91mg/dl Glucose Level 99mg/dl Calcium Level 8.8mg/dl Total Bilirubin 0.7mg/dl Direct Bilirubin 0.00mg/dl Indirect Bilirubin 0.7mg/dl Aspartate Amino Transf (AST/SGOT) 65IU/L Alanine Aminotransferase (ALT/SGPT) 72IU/L Alkaline Phosphatase 79IU/L Total Protein 8.3g/dl Albumin 4.0g/dl Globulin 4.30g/dl Albumin/Globulin Ratio 0.93 Lipase 217U/L Current Medications Medications (Trade) Dose Ordered Sig/Juany Route PRN Reason Start Time Stop Time Status Last Admin Dose Admin Morphine Sulfate (morphine) 8 mg ONCE STAT IV 04/06/17 21:27 04/06/17 21:29 DC 04/06/17 21:50 Ondansetron HCl 4 mg 4 mg ONCE STAT IV 04/06/17 21:27 04/06/17 21:29 DC 04/06/17 21:49 Lactated Ringer's (Lr) 1,000 ml @ 1,000 mls/hr Q1H ONCE IV 04/06/17 21:30 04/06/17 22:29 DC 04/06/17 21:50 Morphine Sulfate (morphine) 8 mg ONCE ONCE IV 04/06/17 23:30 04/07/17 00:33 DC Miscellaneous Medication (Gi Cocktail (2)) 40 ml ONCE ONCE PO 04/07/17 00:00 04/07/17 00:01 UNV Miscellaneous Medication (Gi Cocktail (2)) 40 ml STK-MED ONCE .ROUTE 04/07/17 00:29 04/07/17 00:30 DC Morphine Sulfate (morphine) 8 mg ONCE ONCE IV 04/07/17 01:00 04/07/17 01:01 Procedures/MDM Intractable abdominal pain is concerning and 41-year-old male. Recurrence of the pain. Has no elevated lipase or concerning laboratories with the pain does continue. Given a total of 16 mg of morphine and still continues to have pain although it is decreased.. GI cocktail had no benefit. He has been admitted for this before by Dr. Tompkins. Because been placed to his office. Patient also received Zofran and liter of IV fluids. CT is pending will be followed by the oncoming physician. CT abdomen pelvis interpretation: Official read is pending. I see no acute process. I see no pancreatic inflammation or surrounding fat stranding, no free air perforation, no fractures. Departure Diagnosis: Primary Impression: Intractable abdominal pain Condition: Rober NELSONSHIVANIDOROTAYAAKOV HANCOCK Apr 07, 2017 01:01
--- NOTE | 2017-04-07 01:07 | RADRPT ---
PROCEDURE: CT Abdomen and pelvis without contrast. CLINICAL INDICATION: Abdominal pain. TECHNIQUE: CT scan of the abdomen and pelvis was performed on a multi-detector high-resolution CT scanner. Contiguous axial images were obtained from the lung bases to the ischial tuberosities wit hout intravenous contrast. Coronal and sagittal reformatted images were also obtained. Images were reviewed on the PACS workstation. DICOM images are available. One or more of the following dose reduction techniques were used: - Automated exposure control. - Adjustment of the mA and/or kV according to patient size. - Use of iterative reconstruction technique. Exam CTD/vol = 17.09 mGy. Total exam DLP = 1142.66 mGy-cm. COMPARISON: None. FINDINGS: Evaluation of the lung bases demonstrates mild bibasilar atelectasis. Abdomen: The liver is normal in size and diffusely low in attenuation consistent with fatty infiltr ation. There is no focal mass or dilatation of the biliary tree. The gallbladder is not distended. The spleen and bilateral adrenal glands are within normal limits. Bilateral kidneys are normal in size with no contour deforming mass identified. There is no radiopaque renal or ureteral calculus identified. There is no hydronephrosis or hydroureter. There is no retroperitoneal adenopathy. Th e abdominal aorta is of normal caliber. There is mild to moderate stranding and mild fluid within the mid to right upper abdomen surrounding the head and uncinate process of the pancreas and proximal duodenum. There is stranding and mild f luid extending to the right anterior pararenal space. There is no bowel obstruction or free air. Th e appendix is not visualized. There is no diverticulosis or diverticulitis. Pelvis: The bladder is unremarkable. There is a small left inguinal hernia containing fat. The pr ostate and seminal vesicles are within normal limits. There is no significant pelvic adenopathy or free fluid. Evaluation of the osseous structures demonstrates no suspicious lytic or blastic lesion. IMPRESSION: Mild to moderate stranding and mild fluid within the mid to right upper abdomen surrounding the head and uncinate process of the pancreas and proximal duodenum. Findings could represent pancreatitis a nd/or duodenitis. Fatty infiltration of the liver. Small left inguinal hernia containing fat. .Arvind Newell MD, MD Date Time Electronically viewed and signed by .Arvind Newell MD, MD on 04/07/2017 01:07 .T/
[2017-04-07] MEDS ORDERED: ONDANSETRON 4 MG INJ IV PRN (01:30)
[2017-04-07] MEDS ORDERED: ACETAMINOPHEN 325 MG TAB PO PRN (01:30)
[2017-04-07 02:08] VITALS: Ht 165.1 cm; Wt 92.3 kg
[2017-04-07] MEDS ORDERED: HYDROCODONE/APAP (5/325) TAB PO PRN (02:30)
[2017-04-07 02:42] VITALS: BP 128/78; RESP 20
[2017-04-07] MEDS: D5W-0.45 NACL + KCL 20 MEQ 1,000 ML IV SCH ×4 (04:02→23:25)
[2017-04-07] MEDS: HYDROmorphONE 2 MG/ML SYG IV PRN ×2 (04:08→12:45)
[2017-04-07] MEDS: ONDANSETRON 4 MG INJ IV PRN ×2 (04:40→13:45)
[2017-04-07] MEDS: PANTOPRAZOLE 40 MG INJ IV SCH ×2 (05:41→17:52)
[2017-04-07 07:08] LABS: ALANINE AMINOTRANSFERASE 56 IU/L (13-69); ALBUMIN/GLOBULIN RATIO 1.17; ALKALINE PHOSPHATASE 59 IU/L (42-121); ANION GAP 15 (8-16); ASPARTATE AMINO TRANSFERASE 40 IU/L (15-46); BILIRUBIN,INDIRECT 0.6 mg/dl (0-1.1); BILIRUBIN,TOTAL 0.6 mg/dl (0.2-1.3); BLOOD UREA NITROGEN 10 mg/dl (7-20); CALCIUM 8.3 mg/dl (8.4-10.2); CARBON DIOXIDE 24 mmol/L (21-31); CHLORIDE 103 mmol/L (97-110); CHOL/HDL RATIO 9.1 RATIO; CHOLESTEROL 273 mg/dl (100-200); CREATININE 0.86 mg/dl (0.61-1.24); GLUCOSE 138 mg/dl (70-220); HDL CHOLESTEROL 30 mg/dl (27-67); POTASSIUM 4.2 mmol/L (3.5-5.1); SODIUM 138 mmol/L (135-144); TOTAL PROTEIN 7.4 g/dl (6.1-8.1)
[2017-04-07 07:33] VITALS: BP 107/68; RESP 18
[2017-04-07 07:40] LABS: TRIGLYCERIDES 1352 mg/dl (0-149)
[2017-04-07] MEDS: FISH OIL 1,000 MG CAP PO SCH ×2 (08:40→21:31)
[2017-04-07] MEDS: FENOFIBRATE 145 MG TAB PO SCH (08:40)
[2017-04-07 08:42] LABS: ABNORMAL IP MESSAGE 1; BASOPHILS % 0.2 % (0.0-2.0); EOSINOPHILS % 0.2 % (0.0-7.0); HEMATOCRIT 39.4 % (42.0-52.0); LYMPHOCYTES # 0.5 10^3/ul (0.8-2.9); LYMPHOCYTES % 3.7 % (15.0-51.0); MEAN CORPUSCULAR HEMOGLOBIN 29.9 pg (29.0-33.0); MEAN CORPUSCULAR HGB CONC 35.3 g/dl (32.0-37.0); MEAN CORPUSCULAR VOLUME 84.7 fl (82.0-101.0); MONOCYTE # 0.8 10^3/ul (0.3-0.9); MONOCYTES % 6.3 % (0.0-11.0); NEUTROPHIL # 11.8 10^3/ul (1.6-7.5); NUCLEATED RED BLOOD CELLS% 0.3 /100WBC (0.0-0.0); POSITIVE DIFF @See below; RED BLOOD COUNT 4.65 10^6/ul (4.70-6.10); RED CELL DISTRIBUTION WIDTH 12.7 % (11.5-14.5); WHITE BLOOD COUNT 13.3 10^3/ul (4.8-10.8)
[2017-04-07 08:43] LABS: PLATELET COUNT 226 10^3/UL (140-415)
[2017-04-07 08:44] LABS: MEAN PLATELET VOLUME 10.2 fl (7.4-10.4)
[2017-04-07 08:45] LABS: HEMOGLOBIN 13.9 g/dl (14.0-18.0)
[2017-04-07] MEDS: HYDROCODONE/APAP (5/325) TAB PO PRN ×2 (08:48→20:12)
[2017-04-07 11:05] LABS: ADD UMIC YES; UR ASCORBIC ACID NEGATIVE (NEGATIVE); UR BILIRUBIN (Dip) NEGATIVE (NEGATIVE); UR BLOOD (Dip) 1+ mg/dL (NEGATIVE); UR CLARITY CLEAR (CLEAR); UR COLOR YELLOW (YELLOW); UR GLUCOSE (Dip) 1+ mg/dL (NEGATIVE); UR KETONES (Dip) 1+ mg/dL (NEGATIVE); UR LEUKOCYTE ESTERASE (Dip) NEGATIVE Leu/ul (NEGATIVE); UR NITRITE (Dip) NEGATIVE (NEGATIVE); UR RBC 4 /HPF (0-5); UR SPECIFIC GRAVITY (Dip) 1.026 (1.003-1.030); UR TOTAL PROTEIN (Dip) NEGATIVE (NEGATIVE); UR UROBILINOGEN (Dip) NEGATIVE (NEGATIVE)
--- NOTE | 2017-04-07 11:11 | HP ---
DATE OF ADMISSION: 04/07/2017 HISTORY OF PRESENT ILLNESS: This is one of several [facility] admissions for this 41-year-old gentleman admitted with chief complaint of abdominal pain. Mr. Guerra is a 41-year-old gentleman with severe hyperlipidemia, has had several episodes of pancre atitis secondary to hypertriglyceridemia, severe type IV hyperlipidemia, presented to the emergency room with a 2-day history of worsening epigastric pain; however, different, he states, than his usua l pain. The patient had somewhat over done it on Thanksgiving when he ate a lot and at this point, presented with the above complaint to the emergency room. Evaluation in the emergency room, cat fang did not reveal an elevated amylase, minimal elevation of lipase, however, and patient does describe this pain as being somewhat different than his usual pain and that it is more epigastric a nd radiates to the right side as opposed to the left side. Other than that, he has had no other com plaints and patient was admitted for management of abdominal pain to rule out or to determine the et iology of the back pain. PAST MEDICAL HISTORY: Positive for the followin. He has had at least 3-4 hospitalizations for pancreatitis. 2. Had appendectomy done. 3. Dislocated his right shoulder. 4. He has not broken any big bones. 5. He is not allergic to any medications. CURRENT MEDICATIONS: Include: 1. Gemfibrozil 600 mg b.i.d. 2. Pravastatin 40 mg daily. 3. Niacin 500 mg daily. 4. [place] 3 acid ethyl esters Lovaza 2 grams p.o. b.i.d. ALLERGIES: HE IS NOT ALLERGIC TO ANY MEDICATIONS. SOCIAL HISTORY: The patient is single, has no children. He does not smoke or drink alcohol, does d rink coffee. Has no trouble sleeping at night and is employed. FAMILY HISTORY: Both parents are alive in good health. Two brothers are in good health. There is a family history, however, of diabetes, heart, cancer, hypertension, and stroke. REVIEW OF SYSTEMS HEENT: Periodic headaches. CARDIORESPIRATORY: Denies any chest pain or shortness of breath. GASTROINTESTINAL: No melena or hematemesis; however, does have some gastroesophageal reflux symptom s as well as occasional symptoms of irritable bowel. GENITOURINARY: No urgency, frequency. MUSCULOSKELETAL: Unremarkable. NEUROPSYCHIATRIC: Unremarkable. GENERAL HEALTH: As above. PHYSICAL EXAMINATION: VITAL SIGNS: The patient's blood pressure was 146/82, pulse was 86 and regular, respirations were 1 8, temperature 98, O2 saturation 97%. GENERAL: The patient was noted to be a well-developed, well-nourished male, alert and cooperative a t the time of my exam. Slight abdominal distress in the emergency room but oriented to time, place and person. HEAD, EARS, EYES, NOSE AND THROAT: Head was atraumatic. Eyes: Pupils were equal, reactive to ligh t and accommodation. Fundi were benign. Tympanic membranes were unremarkable. Nose was negative. Mouth was unremarkable. Fair oral hygiene was present. NECK: Supple without any rigidity. Trachea was midline. Thyroid was within normal limits. Neck v eins were flat. Carotid pulses were equal. No bruits were heard. BACK: Unremarkable. CHEST: Symmetrical. BREASTS AND AXILLARY: Did not reveal any masses. LUNGS: Clear to percussion and auscultation. HEART: PMI is fifth intercostal space at the midclavicular line. Regular sinus rhythm was noted. No significant murmurs, rubs or gallops being elicited. ABDOMEN: Soft, bowel sounds were noted in the mid epigastric area. Abdomen tenderness was noted. No guarding or rebound. No distention, normal bowel sounds were noted. GENITALIA: Normal male external genitalia. RECTAL AND PROSTATIC: Exam done within the last 4 months did not reveal any significant abnormaliti es. EXTREMITIES: Normal male external genitalia. RECTAL AND PROSTATIC: Done within the last 4 months was unremarkable. EXTREMITIES: Did not reveal any clubbing, edema or cyanosis. Peripheral pulses were physiologic. SKIN: Moist and warm without any eruptions. No gross lymphadenopathy was noted. NEUROLOGIC: Grossly intact. IMPRESSION: 1. Abdominal pain, moderately severe and intractable; etiology to be determined. 2. History of hypertriglyceridemia and hyperlipidemia with multiple episodes of pancreatitis in the past. 3. Stable health otherwise. LABORATORY DATA: Review of laboratory and other data revealed the following: The patient's ceramic chemist ry panel was normal. CBC was normal. His parameters were all normal, maybe slight elevation of his lipase, but certainly nothing in the ranges that it has been in the past. PLAN: To admit the patient for pain control. Possibilities are that this is not related to the powell creas, but possibly due to peptic ulcer disease and/or gastritis. This worsening pain occurred afte r drinking coffee and having a very heavy diet. CONDITION ON ADMISSION: Stable. PROGNOSIS: Obviously dependent upon ultimate diagnosis. Dictated By: MANOLO PANCHAL/ISAIAH Conf#: [id number] DID#: [id number]
[2017-04-07 14:32] VITALS: BP 111/63; RESP 18
[2017-04-07 15:26] VITALS: BP 111/63; PULSE 74; RESP 18
[2017-04-07 19:24] LABS: INR 1.18; PROTIME 15.1 Sec (12.2-14.2); PT RATIO 1.2
[2017-04-07 19:42] LABS: PARTIAL THROMBOPLASTIN TIME 36.9 Sec (25.0-35.0)
[2017-04-07] MEDS ORDERED: PEG/ELECTROLYTES 4L BTL PO ONE (20:00)
[2017-04-07 20:14] VITALS: BP 115/67; RESP 18
[2017-04-07] MEDS: ATORVASTATIN 20 MG TAB PO SCH (21:31)
[2017-04-08] VITALS (12 sets, daily range): BP systolic 90–135; BP diastolic 55–79; PULSE 82–110; RESP 16–20
[2017-04-08 05:48] LABS: BASOPHILS % 0.2 % (0.0-2.0); EOSINOPHILS # 0.1 10^3/ul (0.0-0.5); HEMATOCRIT 36.7 % (42.0-52.0); LYMPHOCYTES # 1.3 10^3/ul (0.8-2.9); LYMPHOCYTES % 12.4 % (15.0-51.0); MEAN CORPUSCULAR HEMOGLOBIN 30.2 pg (29.0-33.0); MEAN CORPUSCULAR HGB CONC 35.4 g/dl (32.0-37.0); MEAN CORPUSCULAR VOLUME 85.2 fl (82.0-101.0); MEAN PLATELET VOLUME 10.1 fl (7.4-10.4); MONOCYTE # 0.7 10^3/ul (0.3-0.9); MONOCYTES % 6.9 % (0.0-11.0); NEUTROPHIL # 8.1 10^3/ul (1.6-7.5); NEUTROPHILS % 79.2 % (39.0-77.0); PLATELET COUNT 215 10^3/UL (140-415); RED BLOOD COUNT 4.31 10^6/ul (4.70-6.10); RED CELL DISTRIBUTION WIDTH 12.8 % (11.5-14.5); WHITE BLOOD COUNT 10.2 10^3/ul (4.8-10.8)
[2017-04-08] MEDS: PANTOPRAZOLE 40 MG INJ IV SCH ×2 (06:08→18:21)
[2017-04-08 06:24] LABS: ALBUMIN 3.4 g/dl (3.3-4.9); ALBUMIN/GLOBULIN RATIO 0.97; BILIRUBIN,INDIRECT 0.4 mg/dl (0-1.1); BILIRUBIN,TOTAL 0.4 mg/dl (0.2-1.3); CALCIUM 8.4 mg/dl (8.4-10.2); CREATININE 0.95 mg/dl (0.61-1.24); POTASSIUM 3.8 mmol/L (3.5-5.1); TOTAL PROTEIN 6.9 g/dl (6.1-8.1)
[2017-04-08] MEDS: D5W-0.45 NACL + KCL 20 MEQ 1,000 ML IV SCH ×3 (08:30→18:22)
--- NOTE | 2017-04-08 08:35 | PN ---
Date/Time of Note Date/Time of Note DATE: 04/08/17 TIME: 08:29 Assessment/Plan VTE Prophylaxis VTE Prophylaxis Intervention: SCD's Lines/Catheters IV Catheter Type (from Nrs): Peripheral IV Assessment/Plan Chief Complaint/Hosp Course intractable abdominal pain in a patient with multiple bouts of pancreatitis, pain possibly due to gastritis this time Problems: Assessment/Plan gi consult obtained upper and lower endoscopies planned for today. Subjective 24 Hr Interval Summary Constitutional: improved Eyes: no complaints ENT: no complaints Respiratory: no complaints Cardiovascular: no complaints Gastrointestinal: pain Genitourinary: no complaints Musculoskeletal: no complaints Skin: no complaints Neurologic: no complaints Endocrine: no complaints Exam/Review of Systems Vital Signs Vitals Vital Signs Date Time Temp Pulse Resp B/P Pulse Ox O2 Delivery O2 Flow Rate FiO2 04/08/17 08:08 98.2 81 16 112/55 94 04/07/17 15:26 Room Air 04/07/17 01:20 2.0 Intake and Output 04/07/17 04/07/17 04/08/17 15:00 23:00 07:00 Intake Total 1000 ml 450 ml 4050 ml Output Total 2 ml Balance 998 ml 450 ml 4050 ml Exam Constitutional: alert Psych: no complaints Head: normocephalic ENMT: nl external ears & nose Neck: supple Respiratory: clear to auscultation Cardiovascular: regular rate and rhythm Gastrointestinal: soft Musculoskeletal: nl extremities to inspection Results Result Diagram: 04/08/17 0523 04/08/17 0523 Results 24 hrs Laboratory Tests Test 04/07/17 18:35 04/08/17 05:23 Prothrombin Time 15.1 H Prothrombin Time Ratio 1.2 INR International Normalized Ratio 1.18 Activated Partial Thromboplast Time 36.9 H White Blood Count 10.2 # Red Blood Count 4.31 L Hemoglobin 13.0 L Hematocrit 36.7 L Mean Corpuscular Volume 85.2 Mean Corpuscular Hemoglobin 30.2 Mean Corpuscular Hemoglobin Concent 35.4 Red Cell Distribution Width 12.8 Platelet Count 215 Mean Platelet Volume 10.1 Neutrophils % 79.2 H Lymphocytes % 12.4 L Monocytes % 6.9 Eosinophils % 1.0 Basophils % 0.2 Nucleated Red Blood Cells % 0.0 Neutrophils # 8.1 H Lymphocytes # 1.3 Monocytes # 0.7 Eosinophils # 0.1 Basophils # 0.0 Nucleated Red Blood Cells # 0.0 Sodium Level 141 Potassium Level 3.8 Chloride Level 105 Carbon Dioxide Level 29 Anion Gap 11 Blood Urea Nitrogen 8 Creatinine 0.95 Glucose Level 106 Calcium Level 8.4 Total Bilirubin 0.4 Direct Bilirubin 0.00 Indirect Bilirubin 0.4 Aspartate Amino Transf (AST/SGOT) 29 Alanine Aminotransferase (ALT/SGPT) 48 Alkaline Phosphatase 49 Total Protein 6.9 Albumin 3.4 Globulin 3.50 H Albumin/Globulin Ratio 0.97 Lipase 83 Medications Medications Current Medications Potassium Chloride/Dextrose/ Sod Cl (D5-1/2ns + KCl 20 Meq) 1,000 ml @ 100 mls/ hr Q10H IV Last administered on 04/07/17 23:25; Admin Dose 100 MLS/HR; Start 04/07/17 at 02:30 Pantoprazole (Protonix Iv) 40 mg BID@06,18 IV Last administered on 04/08/17 06:08; Admin Dose 40 MG; Start 04/07/17 at 06:00 Acetaminophen/ Hydrocodone Bitart ([place] (5/325)) 1 tab Q4H PRN PO PAIN; Start 04/07/17 at 02:30 Acetaminophen/ Hydrocodone Bitart ([place] (5/325)) 2 tab Q6H PRN PO PAIN Last administered on 04/07/17 20:12; Admin Dose 2 TAB; Start 04/07/17 at 02:30 Hydromorphone HCl (Dilaudid) 2 mg Q4H PRN IV PAIN Last administered on 12:45; Admin Dose 2 MG; Start 04/07/17 at 02:30 Ondansetron HCl (Zofran Inj) 4 mg Q4H PRN IV NAUSEA AND/OR VOMITING Last administered on 04/07/17 13:45; Admin Dose 4 MG; Start 04/07/17 at 02:30 Fish Oil (Fish Oil) 1,000 mg BID PO Last administered on 04/07/17 21:31; Admin Dose 1,000 MG; Start 04/07/17 at 09:00 Atorvastatin Calcium (Lipitor) 20 mg HS PO Last administered on 04/07/17 21: 31; Admin Dose 20 MG; Start 04/07/17 at 21:00 Fenofibrate (Tricor) 145 mg DAILY PO Last administered on 04/07/17 08:40; Admin Dose 145 MG; Start 04/07/17 at 09:00 MANOLO VALDES MD Apr 08, 2017 08:35
[2017-04-08] MEDS: FISH OIL 1,000 MG CAP PO SCH ×2 (09:00→21:00)
[2017-04-08] MEDS: FENOFIBRATE 145 MG TAB PO SCH (09:00)
[2017-04-08] MEDS: KETOROLAC 30 MG INJ IV PRN ×2 (10:07→18:30)
[2017-04-08] MEDS ORDERED: PROPOFOL 20 ML ONE (17:08)
[2017-04-08] MEDS ORDERED: LIDOCAINE 2% (SDV) 5 ML INJ ONE (17:08)
--- NOTE | 2017-04-08 17:38 | OPPN ---
Date/Time of Note Date/Time of Note DATE: 04/08/17 TIME: 17:34 Proc Note GI Procedure Date 04/08/17 Indication: diagnostic Pre-procedure Diagnosis abd pain Post-procedure Diagnosis mild to moderate gastritis micaela done polyp on varix at gej noted bx done band deployed on polyp it is prob located on varix gerd Procedure Performed: Endoscopy Surgeon see signature line Highway Landscape Architect none Anesthesia Type: MAC Tourniquet Time none EBL none Transfusion required none Biopsy 1: bx of polyp at gej Grafts/Implants none Tubes/Drains none Complication(s) none Disposition: PACU Procedure Description egd performed done see dictation BETO MASTERSON MD Apr 08, 2017 17:38
--- NOTE | 2017-04-08 19:02 | CONS ---
DATE OF ADMISSION: 04/07/2017 DATE OF CONSULTATION: GASTROENTEROLOGY CONSULTATION Dear Dr. Palmer: Thank you for asking me to see Mr. Guerra in GI consultation. HISTORY OF PRESENT ILLNESS: As you know, the patient is a 41-year-old gentleman who has be en experiencing abdominal pain for several days prior to the admission. The patient developed epigastric pain which was apparently persistent and did not subside with routi ne symptomatic treatment and, hence, he was brought to the emergency room and was admitted to the [facility]. He is known to have severe hyperlipidemia and several episodes of pancreatitis for which he was admitted to the hospital, and the pancreatitis was considered to be secondary to hypertriglycer idemia. He had no vomiting blood, no history of passing blood from the rectum, no diarrhea, no feve r, no jaundice. He was admitted to the hospital several months ago for pancreatitis. No history of diarrhea. No history of alcoholism. PAST MEDICAL HISTORY: 1. He had 4 hospitalizations for pancreatitis. 2. He had appendectomy several years ago. 3. He also had dislocation of his right shoulder. MEDICATIONS: Prior to the admission include: 1. Gemfibrozil 600 mg b.i.d. 2. Pravastatin 40 mg daily. 3. Niacin 500 mg daily. 4. [place]-3 fatty acid. 5. . 6. Lovaza 2 g p.o. b.i.d. ALLERGIES: NONE. SOCIAL HISTORY: Single, not , no children. Does not smoke or drink. He works in the [employer] room. PHYSICAL EXAMINATION: GENERAL: The patient is a 41-year-old male who at this time is alert. He is well built. VITAL SIGNS: He is afebrile. CARDIOVASCULAR: Normal heart sounds. RESPIRATORY: Normal breath sounds. ABDOMEN: Showed a soft abdomen with no palpable masses, no tenderness, no distention. LABORATORY WORKUP: WBC count 10,200, hemoglobin 13.0. The BUN is 8, creatinine is 0.95, potassium is 3.8. Serum triglycerides 1352, cholesterol 273, LDL is not available, HDL 30. Lipase is 217. The CAT scan of the abdomen shows evidence of mild to moderate stranding and mild fluid within the m id to right upper abdomen surrounding the head and uncinate process of the pancreas and proximal duo denum. Findings could represent pancreatitis and/or duodenitis. CLINICAL IMPRESSION: 1. The patient presenting with history of epigastric pain and burning which he thinks is quite diff erent from the pancreatitis pain that he used to have in the past. At this time, it is quite possib le that he may have a mild degree of pancreatitis, although the lipase is not elevated. On the othe r hand, because of the nature of the pain, which is totally different from before, peptic ulcer dise ase, gastritis, esophagitis needs to be ruled out. 2. Type 4 hyperlipidemia and hypertriglyceridemia and hypercholesterolemia. PLAN: At this time, agree that upper endoscopy will be performed. Meanwhile, will continue Protoni x. Once again, doctor, thank you for this consultation. Dictated By: BETO MASTERSON MD NC/NTS Conf#: [id number] DID#: [id number] CC: MENG BROOKS MD; MANOLO PALMER MD;*EndCC*
[2017-04-08] MEDS: ATORVASTATIN 20 MG TAB PO SCH (21:00)
--- NOTE | 2017-04-08 21:13 | GILP ---
DATE OF PROCEDURE: NAME OF PROCEDURE: Esophagogastroduodenoscopy. PREOPERATIVE DIAGNOSIS: Patient presenting with a history of persistent abdominal pain for the past several days, mostly burning in nature, but also associated heartburn. Rule out peptic ulcer disea se. Rule out gastritis, esophagitis. POSTOPERATIVE DIAGNOSES: 1. Bxnf-hb-iwotfelm degree of diffuse gastritis. 2. Polyp noted in the GE junction, probably looking like the polyp is arising from a varix. Biopsy was done and banding was performed. 3. Grade I to grade II esophageal varices were noted. DESCRIPTION OF PROCEDURE: After the informed written consent was obtained, the patient was asked to lie on the left lateral side. Intravenous anesthesia was given by anesthesiologist, Dr. Goldstein. When the patient became somnolent, the Olympus video upper endoscope was introduced into the oropha rynx, then into the esophagus. Esophagus showed evidence of what looks like erythematous polyp note d, probably sitting on a varix in the GE junction. Scope, at this time, was advanced into the stoma ch. The stomach showed evidence of several areas of erythema and friability with no ulcers, no neop lasm. Biopsy was done from the antrum, the lesser curvature and the fundus. Duodenum was examined, which appeared normal up to the end of the third portion. At this time, biopsy was done, as mentio juliet, from the antrum, lesser curvature and the fundus to rule out H. pylori infection. One biopsy w as done from the polyp the GE junction. After the biopsy was done, it appeared like there was a little oozing of the blood, but to be on the safer side, scope was withdrawn. Scope was advanced , attached with the banding, which was microvasive banding equipment, and the scope was reintroduced into the esophagus and this polyp biopsy was done. The banding was deployed over this and at this time, no bleeding noted and the procedure was terminated. PLAN: Recommend await for the pathology report. Meanwhile, continue Protonix. Dictated By: BETO MASTERSON MD NC/NTS Conf#: [id number] DID#: [id number] CC: MENG BROOKS MD; [facility];*[facility]*
[2017-04-09] MEDS: KETOROLAC 30 MG INJ IV PRN
[2017-04-09] MEDS: D5W-0.45 NACL + KCL 20 MEQ 1,000 ML IV SCH ×4 (00:07→14:30)
[2017-04-09 02:06] VITALS: BP 115/62; RESP 20
[2017-04-09] MEDS: PANTOPRAZOLE 40 MG INJ IV SCH (05:56)
[2017-04-09 07:45] VITALS: BP 109/77; RESP 18
[2017-04-09] MEDS ORDERED: DIPHENOXYLATE/ATROPINE TAB PO ONE (09:00)
[2017-04-09] MEDS: FENOFIBRATE 145 MG TAB PO SCH (09:17)
[2017-04-09] MEDS: FISH OIL 1,000 MG CAP PO SCH (09:17)
[2017-04-09 14:07] VITALS: BP 126/72; RESP 16
--- NOTE | 2017-04-09 14:20 | PDOCDIS ---
Discharge Instructions DIAGNOSIS Discharge Diagnosis 1)acute gastritis with intractable abdominal pian 2)hyperlipidemia with 2nd fatty infiltration of liver 3) low level pancreatitis 4,stable health CONDITION Patient Condition: Good HOME CARE INSTRUCTIONS: Diet Instructions: Low Fat /CholesterolSpecial Diet: Full-liq ACTIVITY: Activity Restrictions: No Restrictions FOLLOW UP/APPOINTMENTS Follow-up Plan f/u in one week outpatient OTHER ORDERS: Other Orders: 1)continue prior medications 2)protonix 40 mg per day SCHOOL/WORK RELEASE May return to School/Work on: Apr 14, 2017 May return to School/Work with: No Restrictions MANOLO VALDES MD Apr 09, 2017 14:20
[2017-04-09] MEDS ORDERED: PANT40VI7 PO (14:24)
--- NOTE | 2017-04-09 14:32 | DS ---
Date/Time of Note Date/Time of Note DATE: 04/09/17 TIME: 14:26 Discharge Summary Admission/Discharge Info Admit Date/Time Apr 07, 2017 at 19:32 Discharge Date/Time 04/09/2017 200pm Discharge Diagnosis 1)acute gastritis with intractable abdominal pian 2)hyperlipidemia with 2nd fatty infiltration of liver 3) low level pancreatitis 4,stable health Patient Condition: Good Consults g.iManjit marti Procedures upper endoscopy 04/08/2017 Hx of Present Illness post thanksgiving meal experienced severe epigastric pain radiating to back and right side Hospital Course intractable abdominal pain in a patient with multiple bouts of pancreatitis, pain possibly due to gastritis this time feel better today post endoscopy.per gi ok for discharge and regular diet with protonix 40 mg bid patient is improved significantly Home Meds Active Scripts [place]-3 Acid Ethyl Esters (Lovaza) 1 Gm Capsule, 2 GM PO BID for 30 Days, #60 CAP 5 Refills Prov:MENG BROOKS MD 06/10/16 Gemfibrozil* (Gemfibrozil*) 600 Mg Tablet, 600 MG PO BID for 30 Days, #60 TAB 5 Refills Prov:MENG BROOKS MD 06/10/16 Reported Medications Niacin* (Niacin*) 500 Mg Tablet, 500 MG PO DAILY, TAB 11/03/14 Pravastatin Sodium* (Pravastatin Sodium*) 40 Mg Tablet, 40 MG PO HS, TAB 11/03/14 Follow-up Plan f/u in one week outpatient Primary Care Provider Saleem Palmer MD Time spent on discharge: > 30 minutes Pending Labs Laboratory Tests Test 04/09/17 07:43 Lab Scanned Report REFERENCE [id number] SALEEM PALMER MD Apr 09, 2017 14:32
--- NOTE | 2017-04-09 14:35 | CONS ---
DATE OF ADMISSION: 04/07/2017 DATE OF CONSULTATION: HISTORY OF PRESENT ILLNESS: From the history standpoint, at this time, patient has no complaints. No nausea, no vomiting, no abdominal pain. He came with abdominal pain and upper endoscopy showed e vidence of a mild to moderate degree of gastritis, small polyp in the GE junction, very faint class I esophageal varices. Now he has eaten breakfast, he has eaten lunch and apparently is doing fine. LABORATORY WORKUP: WBC is 10,200 yesterday. The liver panel also was normal yesterday. His total protein is 8.3, came down to 6.9. Lipase is 83 yesterday. CLINICAL IMPRESSION: The patient has gastritis. His abdominal pain is probably resolved. He also has a mild pancreatitis on the CT scan. It is possible that he had abdominal pain due to pancreatit is, although gastritis is a possibility. PLAN: Recommend continue Protonix and he may need to evaluate esophageal varices. Once again, doctor, thank you for this consultation. Dictated By: BETO HOLLIDAY/ISAIAH Conf#: [id number] DID#: [id number] CC: MANOLO VALDES MD;*EndCC*
== END 2017-04-09 15:50 | disposition home or self-care (01) | DRG 391 ==
LOC: E/R 21:16 → MS2 04-07 01:05 → OBSVTOIN 04-07 19:32
PROVIDERS: ADMIT Internal Medicine; ATTEND Internal Medicine
PROC: 0DB48ZX Excision of Esophagogastric Junction, Via Natural or Artificial Opening Endoscopic, Diagnostic (ICD-10-PCS; 2017-04-08)
PROC: 0DJ08ZZ Inspection of Upper Intestinal Tract, Via Natural or Artificial Opening Endoscopic (ICD-10-PCS; principal; 2017-04-08 17:30)
PROC: 0DB48ZX Excision of Esophagogastric Junction, Via Natural or Artificial Opening Endoscopic, Diagnostic (ICD-10-PCS; 2017-04-08 17:30)
DX: K29.70 Gastritis, unspecified, without bleeding (principal); K85.90 Acute pancreatitis without necrosis or infection, unspecified; I85.00 Esophageal varices without bleeding; K76.0 Fatty (change of) liver, not elsewhere classified; K22.8 Other specified diseases of esophagus; E78.1 Pure hyperglyceridemia; K21.9 Gastro-esophageal reflux disease without esophagitis; E78.00 Pure hypercholesterolemia, unspecified; E78.4 Other hyperlipidemia
CPT/HCPCS: 36415; 74176; 80053; 80061; 81001; 83605; 83690; 85025; 85610; 85730; 87040; 96374; 96375; 96376; C9113; G0378; J1170; J1885; J2270; J2405; J3480; J7120

== ENCOUNTER 2018-02-03 02:45 | Inpatient (IN) | END 2018-02-04 15:05 | disposition home or self-care (01) | DRG 642 ==

== ENCOUNTER 2018-09-01 15:26 | Emergency (ER) | payer BC ==
[~2018-09-01] VITALS: Ht 167.6 cm; Wt 92.7 kg
[~2018-09-01 15:26] MED LIST changes: +ATOR10TA65 PO; +CYAN500T46 PO; +ERGO500013 PO; -GEMF600T60 PO; +GEMF600T8 PO; -NIAC500T81 PO; +PANT40VI7 PO; -PRAV40TA76 PO
[2018-09-01 15:33] VITALS: Ht 167.6 cm; Wt 92.7 kg
[2018-09-01] MEDS ORDERED: SOD CHLORIDE 0.9% 1,000 ML IV STA (15:35)
[2018-09-01] MEDS ORDERED: ONDANSETRON 4 MG INJ IV STA (15:35)
--- NOTE | 2018-09-01 17:49 | ERD ---
ER Documentation Chief Complaint Chief Complaint diarrhea and bodyaches past 2 days HPI 43-year-old male presents with chills, body aches and diarrhea for last 2 days. Diarrhea is watery approximately 15-20 times a day. He has nausea but no vomiting. He denies abdominal pain. He has a history of pancreatitis due to hypertriglyceridemia but denies abdominal pain or symptoms of previous episodes of pancreatitis. Symptoms started after possibly eating some bad food. ROS All systems reviewed and are negative except as per history of present illness. Medications Home Meds Active Scripts Ergocalciferol (Vitamin D2) (VITAMIN D2) 50,000 Unit Capsule, 95144 UNIT PO Th@09 for 28 Days, #4 CAP Prov:DOROTA NIÑO MD 02/04/18 Cyanocobalamin* (Vitamin B12*) 500 Mcg Tab, 1000 MCG PO DAILY for 30 Days, #30 TAB 1 Refill Prov:DOROTA NIÑO MD 02/04/18 Atorvastatin (Atorvastatin) 10 Mg Tablet, 40 MG PO DAILY@21 for 30 Days, #30 TAB 3 Refills Prov:DOROTA NIÑO MD 02/04/18 Pantoprazole* (Protonix* IV) 40 Mg Soln, 40 MG PO BID@06,18 for 30 Days, #60 BOTTLE 3 Refills Prov:MANOLO VALDES MD 04/09/17 [place]-3 Acid Ethyl Esters (Lovaza) 1 Gm Capsule, 2 GM PO BID for 30 Days, #60 C AP 5 Refills Prov:MENG BROOKS MD 06/10/16 Gemfibrozil* (Gemfibrozil*) 600 Mg Tablet, 600 MG PO BID for 30 Days, #60 TAB 5 Refills Prov:MENG BROOKS MD 06/10/16 Allergies Allergies: Coded Allergies: No Known Allergy (Unverified , 11/03/14) PMhx/Soc History of Surgery: Yes (Appendectomy ) Anesthesia Reaction: No Hx Neurological Disorder: No Hx Respiratory Disorders: No Hx Cardiac Disorders: Yes (high cholesterol) Hx Psychiatric Problems: No Hx Miscellaneous Medical Probl: No Hx Alcohol Use: Yes (RARELY; BEER ONCE IN A WHILE) Hx Substance Use: No Hx Tobacco Use: No Smoking Status: Never smoker Physical Exam Vitals Vital Signs Date Temp Pulse Resp B/P (MAP) Pulse Ox O2 O2 Flow FiO2 Time Delivery Rate 09/01/18 98.7 96 18 127/76 100 15:33 (93) Physical Exam Const: No acute distress Head: Atraumatic Eyes: Normal Conjunctiva ENT: Normal External Ears, Nose and Mouth. Neck: Full range of motion. No meningismus. Resp: Clear to auscultation bilaterally Cardio: Regular rate and rhythm, no murmurs Abd: Soft, non tender, non distended. Normal bowel sounds Skin: No petechiae or rashes Back: No midline or flank tenderness Ext: No cyanosis, or edema Neur: Awake and alert Psych: Normal Mood and Affect Result Diagram: 09/01/18 1541 09/01/18 1657 Results 24 hrs Laboratory Tests Test 09/01/18 15:41 09/01/18 16:57 White Blood Count 4.7 10^3/ul Red Blood Count 4.70 10^6/ul Hemoglobin 12.0 g/dl Hematocrit 34.9 % Mean Corpuscular Volume 84.3 fl Mean Corpuscular Hemoglobin 29.0 pg Mean Corpuscular Hemoglobin Concent 34.4 g/dl Red Cell Distribution Width 13.6 % Platelet Count 183 10^3/UL Mean Platelet Volume 10.3 fl Neutrophils % % Lymphocytes % % Monocytes % % Eosinophils % % Basophils % % Nucleated Red Blood Cells % 0.0 /100WBC Neutrophils # 10^3/ul Lymphocytes # 10^3/ul Monocytes # 10^3/ul Eosinophils # 10^3/ul Basophils # 10^3/ul Nucleated Red Blood Cells # 10^3/ul Sodium Level 136 mmol/L Potassium Level 5.5 mmol/L Chloride Level 103 mmol/L Carbon Dioxide Level 24 mmol/L Anion Gap 9 Blood Urea Nitrogen 9 mg/dl Creatinine 0.85 mg/dl Est Glomerular Filtrat Rate mL/min > 60 mL/min Glucose Level 102 mg/dl Calcium Level 8.7 mg/dl Total Bilirubin 0.5 mg/dl Direct Bilirubin 0.00 mg/dl Indirect Bilirubin 0.5 mg/dl Aspartate Amino Transf (AST/SGOT) 88 IU/L Alanine Aminotransferase (ALT/SGPT) 23 IU/L Alkaline Phosphatase 37 IU/L Total Protein 9.1 g/dl Albumin 4.9 g/dl Globulin 4.20 g/dl Albumin/Globulin Ratio 1.16 Lipase 27 U/L Current Medications Medications Dose Sig/Juany Start Time Status Last (Trade) Ordered Route PRN Stop Time Admin Dose Reason Admin Sodium 1,000 ml @ Q1H STAT 09/01/18 DC 09/01/18 Chloride 1,000 mls/hr IV 15:35 16:08 09/01/18 16:34 Ondansetron 4 mg ONCE STAT 09/01/18 DC 09/01/18 HCl (Zofran IV 15:35 16:12 Inj) 09/01/18 15:37 Procedures/MDM CBC shows no significant acute abnormalities. Potassium elevated although specimen hemolyzed. CMP shows no acute abnormality except for minimal transaminitis. Lipase is normal. Patient felt better after 1 L normal saline IV. Patient presents with likely self-limited viral or foodborne diarrhea. He has no signs of abdominal pain, ill appearance. Discharged home with recommendations for Pepto-Bismol, fluids, primary care follow-up and return precautions for fevers, vomiting, blood, abdominal pain, new worsening symptoms. The patient was stable with no new complaints during the ER course. Clinically, there is no current evidence to suggest meningitis, sepsis, acute abdomen, pn eumonia, stroke, acute coronary syndrome, pulmonary embolism, aortic dissection or any other emergent condition appearing to require further evaluation or hospitalization. Patient counseled regarding my diagnostic impression and care plan. Prior to discharge all questions answered. Pt agrees with treatment plan and understands strict return precautions. Pt is instructed to follow up with primary care provider within 24-48 hours. Precautionary instructions provided including instructions to return to the ER if not improving or for any worsening or changing symptoms or concerns. Departure Diagnosis: Primary Impression: Diarrhea Diarrhea type: unspecified type Qualified Codes: R19.7 - Diarrhea, unspecified Condition: Stable Patient Instructions: Treating Diarrhea, Self-Care for Vomiting and Diarrhea Additional Instructions: No significant abnormalities on labs today. Likely self-limited foodborne illness or viral diarrhea. Recheck for blood, abdominal pain, vomiting, new or worsening symptoms. Recommend Pepto-Bismol for diarrhea. JULIA FOSTER MD Sep 01, 2018 17:49
[2018-09-01 18:10] VITALS: BP 132/78; PULSE 85; RESP 18
== END 2018-09-01 18:12 | disposition home or self-care (01) ==
LOC: FTE 15:26
DX: R19.7 Diarrhea, unspecified (principal); R11.0 Nausea
CPT/HCPCS: 36415; 80053; 83690; 85025; 96361; 96374; 99284; J2405; J7030